=== PATIENT | female | born 1955 | race Caucasian/White ===

== ENCOUNTER 2020-06-17 13:06 | Emergency (ER) | payer OTHER ==
[2020-06-28] MEDS ORDERED: VITAMIN D PO (07:38)
[2020-06-28] MEDS ORDERED: DIABETA 2.5 MG2.5 MG PO (07:39)
[2020-06-28] MEDS ORDERED: ESTRADIOL1 MG PO (07:40)
[2020-06-28] MEDS ORDERED: MONTELUKAST SOD10 MG PO (07:42)
[2020-06-28] MEDS ORDERED: VITAMIN E400 UNI4 PO (07:42)
[2020-06-28] MEDS ORDERED: ATORVASTATIN CA20 MG PO (07:43)
[2020-06-28] MEDS ORDERED: LISINOPRIL20 MG PO (07:43)
[2020-06-28] MEDS ORDERED: PRILOSEC OTC20 MG PO (07:43)
[2020-06-28] MEDS ORDERED: ZOFRAN 4 MG TAB4 MG PO (07:44)
[2020-06-28] MEDS ORDERED: LASIX20 MG PO (07:44)
[2020-06-28] MEDS ORDERED: CALCIUM PO (07:45)
[2020-06-28] MEDS ORDERED: MAGNESIUM PO (07:45)
[2020-06-28] MEDS ORDERED: SUBOXONE 8 MG-1 EACH SL (07:53)
== END 2020-06-17 15:21 | disposition home or self-care (01) ==
LOC: ER1 13:06
DX: S82.51XA Displaced fracture of medial malleolus of right tibia, initial encounter for closed fracture (principal); S82.101A Unspecified fracture of upper end of right tibia, initial encounter for closed fracture; I10 Essential (primary) hypertension; F17.290 Nicotine dependence, other tobacco product, uncomplicated; V49.9XXA Car occupant (driver) (passenger) injured in unspecified traffic accident, initial encounter; Y92.410 Unspecified street and highway as the place of occurrence of the external cause
CPT/HCPCS: 73610; 73630; 99283

== ENCOUNTER → 2020-06-19 | Outpatient (CLI) | payer OTHER ==
[~2020-06-19] MED LIST: ATORVASTATIN CA20 MG PO; CALCIUM PO; DIABETA 2.5 MG2.5 MG PO; ESTRADIOL1 MG PO; LASIX20 MG PO; LISINOPRIL20 MG PO; MAGNESIUM PO; MONTELUKAST SOD10 MG PO; PRILOSEC OTC20 MG PO; SUBOXONE 8 MG-1 EACH SL; VITAMIN D PO; VITAMIN E400 UNI4 PO; ZOFRAN 4 MG TAB4 MG PO
== END ==
LOC: KOH-I 11:00
DX: Z01.818 Encounter for other preprocedural examination (principal); S82.871A Displaced pilon fracture of right tibia, initial encounter for closed fracture; S92.141A Displaced dome fracture of right talus, initial encounter for closed fracture; M21.961 Unspecified acquired deformity of right lower leg; X58.XXXA Exposure to other specified factors, initial encounter
CPT/HCPCS: 73700; 93926

== ENCOUNTER → 2020-06-28 | Day surgery (SDC) | payer OTHER ==
[~2020-06-28] VITALS: Ht 170.2 cm; Wt 89.4 kg
[2020-06-28 07:40] LABS: HEMOGLOBIN 12.6 gm/dl (12.3-15.3); RED BLOOD COUNT 4.28 M/UL (4.00-5.10); WHITE BLOOD COUNT 8.6 K/UL (4.5-11.0)
[2020-06-28 07:58] LABS: BUN/CREATININE RATIO 17 (0-10)
== END | disposition home or self-care (01) ==
LOC: OR 06:23
PROVIDERS: Podiatrist Foot & Ankle Surgery
DX: S82.871A Displaced pilon fracture of right tibia, initial encounter for closed fracture (principal); S82.51XA Displaced fracture of medial malleolus of right tibia, initial encounter for closed fracture; T84.84XA Pain due to internal orthopedic prosthetic devices, implants and grafts, initial encounter; I10 Essential (primary) hypertension; E78.5 Hyperlipidemia, unspecified; K58.9 Irritable bowel syndrome, unspecified; K21.9 Gastro-esophageal reflux disease without esophagitis; E11.9 Type 2 diabetes mellitus without complications; G47.30 Sleep apnea, unspecified; Z87.891 Personal history of nicotine dependence; V49.9XXA Car occupant (driver) (passenger) injured in unspecified traffic accident, initial encounter; Z79.84 Long term (current) use of oral hypoglycemic drugs; Z79.899 Other long term (current) drug therapy
CPT/HCPCS: 36415; 73610; 76000; 80048; 85027; C1713; J0171; J0690; J1100; J1885; J2001; J2370; J2704; J2795; J3010; J3370; J7120; Q4133

== ENCOUNTER → 2020-07-08 | Outpatient (CLI) | payer OTHER | LOC: KOH-I 10:57 | DX: S82.891D Other fracture of right lower leg, subsequent encounter for closed fracture with routine healing (principal); X58.XXXD Exposure to other specified factors, subsequent encounter | CPT/HCPCS: 73610 ==

== ENCOUNTER → 2020-08-05 | Outpatient (CLI) | payer OTHER | LOC: KOH-I 09:57 | DX: S82.301D Unspecified fracture of lower end of right tibia, subsequent encounter for closed fracture with routine healing (principal); Z98.890 Other specified postprocedural states; X58.XXXD Exposure to other specified factors, subsequent encounter | CPT/HCPCS: 73610 ==

== ENCOUNTER → 2020-08-26 | Outpatient (CLI) | payer OTHER | LOC: KOH-I 09:47 | DX: S82.301D Unspecified fracture of lower end of right tibia, subsequent encounter for closed fracture with routine healing (principal) | CPT/HCPCS: 73610 ==